=== PATIENT | male | born 1945 | race Caucasian/White ===

== ENCOUNTER 2023-11-07 02:45 | Emergency (ER) | payer MEDICARE, OTHER, SELFPAY ==
[2023-11-07] VITALS (7 sets, daily range): BP systolic 121–154; BP diastolic 63–83; BMI 32.7
[2023-11-07 03:34] LABS: % Basophils 0.5 % (0-2); % Eosinophils 1.1 % (0-6); % Immature Granulocytes 0.5 % (0-0.5); % Lymphocytes 8.6 % (20.5-51.1); % Monocytes 7.2 % (1.7-9.3); % Neutrophils 82.1 % (42.2-75.2); Absolute Eosinophils 0.1 10^3/uL (0-0.7); Absolute Lymphocytes 0.7 10^3/uL (1.2-3.4); Absolute Monocytes 0.6 10^3/uL (0.1-0.6); Absolute Neutrophils 6.5 10^3/uL (1.4-6.5); Hematocrit 32.1 % (39.0-52.0); Hemoglobin 11.4 g/dL (13.0-18.0); Mean Corp Hgb Conc. 35.5 g/dL (33.0-37.0); Mean Corpuscular Hgb 33.7 pg (27.0-31.0); Mean Platelet Volume 9.8 fL (7.4-10.4); Nucleated Red Blood Cells % 0 % (-); Platelet Count 191 10^3/uL (130-400); Red Blood Cell Count 3.38 10^6/uL (4.70-6.10); Red Cell Dist. Width 13.4 % (11.5-14.5); White Blood Cell Count 7.9 10^3/uL (4.8-10.8)
[2023-11-07 03:52] LABS: NT-proBNP 391 pg/ml; Troponin I < 0.012 ng/ml
[2023-11-07 03:57] LABS: ALT (SGPT) 23 U/L (0-50); AST (SGOT) 28 U/L (17-59); Albumin 3.7 g/dl (3.5-5.0); Alkaline Phosphatase 89 U/L (38-126); Blood Urea Nitrogen 32 mg/dl (9-20); Calcium 9.5 mg/dl (8.4-10.2); Carbon Dioxide 23 mmol/L (22-30); Chloride 103 mmol/L (98-107); Estimated Creatinine Clearance 75 ml/min; Glucose 135 mg/dl (70-99); Potassium 4.2 mmol/L (3.5-5.1); Sodium 138 mmol/L (135-145); Total Bilirubin 0.7 mg/dl (0.2-1.3); Total Protein 6.1 g/dl (6.3-8.2); eGFR > 60.00
--- NOTE | 2023-11-07 03:58 | ED.GENMED ---
History of Present Illness
<DO Lux Laboy Last Filed: 11/07/23 04:01>
General
Chief Complaint: Chest Pain
Source: patient
Time Seen by Provider: 11/07/23 03:48
Travel History
Have you had any contact with someone who has COVID-19?: No
Do you have any symptoms of coronavirus? Fever > 100 degrees, chills, cough, shortness of breath, sore throat, loss of taste or smell, muscle aches, or headache?: No
History of Present Illness
History of Present Illness:
78-year-old male presents to the emergency room complaining of chest pain. Patient states he was awoken from sleep by a sharp pain in the center of his chest. Pain was constant initially but now is somewhat better. It does get worse with a deep
breath. He does not feel short of breath. Patient does have a history of coronary artery disease and bypass surgery. He takes Plavix and aspirin. He has been compliant.
Past History
<Kelvin Baker DO - Last Filed: 11/07/23 04:01>
Past History
ED Past Medical History: CAD, Cancer (Prostate CA with radiation), HTN, Hypercholesterolemia and Other (Kidney stones)
ED Past Surgical History: Cardiac (CABG, stents X 2)
Social History
Tobacco: Non-smoker
Alcohol: Occasional
Drug: None
Personal:
Living: with family
Phy Exam
<DO Lux Laboy Last Filed: 11/07/23 04:01>
Physical Exam
Physical Exam:
General: Awake, Alert, Oriented X3. No acute distress.
Vitals: unremarkable
Head: Atraumatic
Eyes: Pupils equal, EOMI
Throat: Airway intact, no exudates
Neck: Trachea midline
Lungs: Clear and equal b/l
Heart: Regular rate, no murmurs
Abd: Soft, Nontender, No pulsatile mass
Neuro: Nonfocal
Skin: Warm, dry, no rash
Extremities: pulses equal b/l, no edema
<Wong Coy Martinez, DO - Last Filed: 11/07/23 15:10>
Heart Score for Chest Pain Patients
STEMI patient?: Not applicable
Course
<Kelvin SilvestreJinny Baker, DO - Last Filed: 11/07/23 04:01>
Orders/Labs/Results
Orders:
Orders
11/07/23 02:52
Electrocardiogram (*1) Urgent
Reason for Study: Other
Other Reason for Exam: Respiratory Distress
Cardiac Monitoring- Treatment ONCE
EKG- Treatment ONCE
IV Insert/Care/Rem.- Treatment PRN
CR Chest - 2 Views Urgent
Comment:
Reason For Exam: respiratory distress
O2 Therapy [RESP] Urgent
Titrate/Wean O2 to maintain O2 sat greater than (%): 93
Special Instructions: TO MAINTAIN CONTINUOUS O2 SATS >/= 93%
Pulse Ox/cont/shift [RESP] Urgent
Quantity: 1
Special Instructions: continuous pulse ox
11/07/23 03:11
Complete Blood Count/With Diff Urgent
Comprehensive Metabolic Panel Urgent
NT-proBNP Urgent
Troponin I Urgent
11/07/23 04:15
D-Dimer Urgent
11/07/23 05:24
CT Chest Pe Study Urgent
Comment:
Reason For Exam: chest pain
11/07/23 06:01
Troponin I Urgent
Abnormal Lab Results
11/07/23 11/07/23
03:11 04:15
RBC 3.38 L 10^6/uL
(4.70-6.10)
Hgb 11.4 L g/dL
(13.0-18.0)
Hct 32.1 L %
(39.0-52.0)
MCV 95.0 H fL
(80.0-94.0)
MCH 33.7 H pg
(27.0-31.0)
Absolute Lymphs (auto) 0.7 L 10^3/uL
(1.2-3.4)
Neutrophils % 82.1 H %
(42.2-75.2)
Lymphocytes % 8.6 L %
(20.5-51.1)
D-Dimer 0.84 H ug/mlFEU
(0.00-0.50)
BUN 32 H mg/dl
(9-20)
Glucose 135 H mg/dl
(70-99)
Total Protein 6.1 L g/dl
(6.3-8.2)
11/07/23 03:11
11/07/23 03:11
Vital Signs
Initial and Last Documented VS:
Initial Vital Signs
Temp Pulse Resp BP Pulse Ox
97.1 F 74 20 121/65 95
11/07/23 02:53 11/07/23 02:53 11/07/23 02:53 11/07/23 02:53 11/07/23 02:53
Last Documented Vital Signs
Temp Pulse Resp BP Pulse Ox
97.1 F 66 20 130/65 97
11/07/23 02:53 11/07/23 07:45 11/07/23 07:45 11/07/23 07:00 11/07/23 07:45
Remalt;Wong Martinez DO - Last Filed: 11/07/23 15:10>
Orders/Labs/Results
Orders:
Orders
11/07/23 02:52
Electrocardiogram (*1) Urgent
Reason for Study: Other
Other Reason for Exam: Respiratory Distress
Cardiac Monitoring- Treatment ONCE
EKG- Treatment ONCE
IV Insert/Care/Rem.- Treatment PRN
CR Chest - 2 Views Urgent
Comment:
Reason For Exam: respiratory distress
O2 Therapy [RESP] Urgent
Titrate/Wean O2 to maintain O2 sat greater than (%): 93
Special Instructions: TO MAINTAIN CONTINUOUS O2 SATS >/= 93%
Pulse Ox/cont/shift [RESP] Urgent
Quantity: 1
Special Instructions: continuous pulse ox
11/07/23 03:11
Complete Blood Count/With Diff Urgent
Comprehensive Metabolic Panel Urgent
NT-proBNP Urgent
Troponin I Urgent
11/07/23 04:15
D-Dimer Urgent
11/07/23 05:24
CT Chest Pe Study Urgent
Comment:
Reason For Exam: chest pain
11/07/23 06:01
Troponin I Urgent
Abnormal Lab Results
11/07/23 11/07/23
03:11 04:15
RBC 3.38 L 10^6/uL
(4.70-6.10)
Hgb 11.4 L g/dL
(13.0-18.0)
Hct 32.1 L %
(39.0-52.0)
MCV 95.0 H fL
(80.0-94.0)
MCH 33.7 H pg
(27.0-31.0)
Absolute Lymphs (auto) 0.7 L 10^3/uL
(1.2-3.4)
Neutrophils % 82.1 H %
(42.2-75.2)
Lymphocytes % 8.6 L %
(20.5-51.1)
D-Dimer 0.84 H ug/mlFEU
(0.00-0.50)
BUN 32 H mg/dl
(9-20)
Glucose 135 H mg/dl
(70-99)
Total Protein 6.1 L g/dl
(6.3-8.2)
11/07/23 03:11
11/07/23 03:11
Vital Signs
Initial and Last Documented VS:
Initial Vital Signs
Temp Pulse Resp BP Pulse Ox
97.1 F 74 20 121/65 95
11/07/23 02:53 11/07/23 02:53 11/07/23 02:53 11/07/23 02:53 11/07/23 02:53
Last Documented Vital Signs
Temp Pulse Resp BP Pulse Ox
97.1 F 66 20 130/65 97
11/07/23 02:53 11/07/23 07:45 11/07/23 07:45 11/07/23 07:00 11/07/23 07:45
<Kelvin Baker, DO - Last Filed: 11/07/23 04:01>
*EKG
Interpreted by ED Provider?: Yes
Interpretation: normal
Heart Rate: 72
Rate: normal
Rhythm: sinus and PVC's
[place]: normal axis
Ischemia: non-specific ST changes
*Program Director/Traffic Director Interpretation
Rate: normal
Interpretation: normal
Rhythm: sinus
<Wong Martinez DO - Last Filed: 11/07/23 15:10>
*Critical Care Note
Total Time (30-74mins, 75-104mins- exclusive of procedures): Not Applicable
<Wong Martinez DO - Last Filed: 11/07/23 15:10>
Update Note
Update Note:
I received signout from Dr. Baker at 7 AM. Age-adjusted D-dimer was elevated, however there is no evidence of PE on CTA. Notified patient of the nodules noted�he states he has had them 'since I was a kid'. He is not a smoker. 2 troponins have
been negative. He still has some pleuritic discomfort but appears comfortable at time of discharge.
ED Attending Note
<Kelvin Baker DO - Last Filed: 11/07/23 04:01>
-
Portions of this chart may have been created with voice recognition software.� Occasional wrong word or��sound alike� substitutions may have occurred due to the inherent limitations of voice recognition software.
Discharge Plan
Departure
Patient Disposition: Home (Routine Discharge)
Date of Disposition: 11/07/23
Time of Disposition: 07:40
Patient with high blood pressure during this ER visit?: Yes
Discharge Problem:
Chest pain
Instructions: Chest Pain CBC Follow Up
Prescriptions:
No Action
multivitamin [One Daily] 1 EACH tablet
1 ea PO DAILY
clopidogrel 75 MG tablet
75 mg PO DAILY
metoprolol tartrate 25 MG tablet
25 mg PO BID
ranolazine 500 MG tablet extended release 12 hr
1,000 mg PO BID
famotidine 20 MG tablet
20 mg PO QPM
nitroglycerin 0.4 MG tablet, sublingual
1 tab sublingual . DIRECTED
Patient Comments:
never used.
atorvastatin 80 MG tablet
80 mg PO DAILY
losartan 25 MG tablet
50 mg PO DAILY Qty: 0 0RF
Rx Instructions:
Hold if systolic blood pressure <130 while on Oxycodone.
aspirin 325 MG tablet
81 mg PO DAILY
Rx Instructions:
Take daily x4 weeks for blood clot prevention; then resume Aspirin 81 mg daily.
Osteo Bi-Flex
1 tab PO DAILY
Referrals:
Aldair Srivastava MD [Family Provider] -
Activity Restrictions/Additional Instructions:
2 cardiac blood tests show no sign of heart attack. However I strongly recommend he still follow with your wellness specialist. They should be contacting you for follow-up with if you do not hear from them by Thursday, I recommend that you call them. The
CAT scan of the chest shows no sign of blood clot however the radiologist noted 'indeterminate 1.3 cm nodule in the posterior left apex, 6 mm nodule in the right lower lobe, and radiologist recommended 3-month follow-up�discussed with your primary
care doctor.
Interventions
Interventions:
*Risk Screen - Suicide Last Done: 11/07/23 03:12
*General Assessment Last Done: 11/07/23 03:12
*Neglect/Abuse Screening Last Done: 11/07/23 07:54
ED- Fall Risk Assessment Last Done: 11/07/23 03:13
*ED COVID-19 Vaccine History Last Done: 11/07/23 03:11
*Nursing Disposition Last Done: 11/07/23 07:54
ED- Cardiac Assessment Last Done: 11/07/23 03:13
Discharge Date and Time
Discharge Date/Time: 11/07/23 07:54
[2023-11-07 04:39] LABS: D-Dimer 0.84 ug/mlFEU (0.00-0.50)
[2023-11-07 06:34] LABS: Troponin I < 0.012 ng/ml
== END 2023-11-07 07:54 | disposition home or self-care (01) ==
LOC: EMR 02:45
PROVIDERS: Emergency Medicine; EMERGENCY PHYSICIAN Emergency Medicine; FAMILY PHYSICIAN Internal Medicine
DX: R07.9 Chest pain, unspecified (principal); I25.10 Atherosclerotic heart disease of native coronary artery without angina pectoris; I10 Essential (primary) hypertension; E78.00 Pure hypercholesterolemia, unspecified; Z95.1 Presence of aortocoronary bypass graft; Z87.442 Personal history of urinary calculi; Z85.46 Personal history of malignant neoplasm of prostate; Z95.5 Presence of coronary angioplasty implant and graft; Z79.82 Long term (current) use of aspirin; Z79.02 Long term (current) use of antithrombotics/antiplatelets
CPT/HCPCS: 99285; 71046; 71275; 80053; 83880; 84484; 85025; 85379; 93005; Q9967

== ENCOUNTER → 2023-11-13 09:54 | Outpatient (REF) | payer MEDICARE, OTHER, SELFPAY ==
[2023-11-13 12:41] LABS: PSA, Total - Diagnostic 0.15 ng/ml (0.0-4.0)
== END ==
LOC: REG 09:54
PROVIDERS: ATTENDING PHYSICIAN Specialist; FAMILY PHYSICIAN Internal Medicine
DX: C61 Malignant neoplasm of prostate (principal)
CPT/HCPCS: 36415; 84153

== ENCOUNTER → 2023-11-18 11:10 | Outpatient (REF) | payer MEDICARE, OTHER, SELFPAY | LOC: DHCBC/DCA 11:10 | PROVIDERS: ATTENDING PHYSICIAN Nurse Practitioner | DX: R07.9 Chest pain, unspecified (principal) | CPT/HCPCS: 78452; 93017; A9500; J2785 ==

== ENCOUNTER → 2023-11-27 08:56 | Outpatient (REF) | payer MEDICARE, OTHER, SELFPAY | LOC: DHCBC HW 08:56 | PROVIDERS: ATTENDING PHYSICIAN Nurse Practitioner | DX: R07.9 Chest pain, unspecified (principal) | CPT/HCPCS: 93306 ==

== ENCOUNTER → 2023-12-09 10:01 | Outpatient (REF) | payer MEDICARE, OTHER, SELFPAY ==
[2023-12-09 10:48] LABS: Erythrocyte Sed Rate 10 mm/hour (0-20)
[2023-12-09 11:05] LABS: C-Reactive Protein < 5.00 mg/L (0.0-10.00)
[2023-12-10 13:32] LABS: Rheumatoid Agglutinin Less Than 10 IU (<10 IU)
[2023-12-11 15:05] LABS: ANA, IgG Reflex to HEp-2 None Detected (None Detected)
[2023-12-11 20:02] LABS: ds-DNA Ab, IgG Reflex To Titer 2 IU (0-24)
== END ==
LOC: REG 10:01
PROVIDERS: ATTENDING PHYSICIAN Internal Medicine Critical Care Medicine
DX: R07.81 Pleurodynia (principal)
CPT/HCPCS: 36415; 85652; 86038; 86140; 86225; 86430

== ENCOUNTER → 2024-01-28 09:20 | Outpatient (REF) | payer MEDICARE, OTHER, SELFPAY ==
[2024-01-28 10:27] LABS: % Basophils 0.8 % (0-2); % Eosinophils 2.4 % (0-6); % Immature Granulocytes 0.4 % (0-0.5); % Lymphocytes 14.9 % (20.5-51.1); % Monocytes 7.7 % (1.7-9.3); % Neutrophils 73.8 % (42.2-75.2); Absolute Eosinophils 0.1 10^3/uL (0-0.7); Absolute Lymphocytes 0.7 10^3/uL (1.2-3.4); Absolute Monocytes 0.4 10^3/uL (0.1-0.6); Absolute Neutrophils 3.7 10^3/uL (1.4-6.5); Hematocrit 35.9 % (39.0-52.0); Hemoglobin 12.2 g/dL (13.0-18.0); Mean Corpuscular Hgb 33.7 pg (27.0-31.0); Mean Corpuscular Volume 99.2 fL (80.0-94.0); Mean Platelet Volume 10.1 fL (7.4-10.4); Nucleated Red Blood Cells % 0 % (-); Platelet Count 169 10^3/uL (130-400); Red Blood Cell Count 3.62 10^6/uL (4.70-6.10); Red Cell Dist. Width 13.7 % (11.5-14.5)
[2024-01-28 11:33] LABS: TSH Reflex To Free T4 1.45 uIU/ml (0.47-4.68)
== END ==
LOC: REG 09:20
PROVIDERS: ATTENDING PHYSICIAN Internal Medicine Gastroenterology; FAMILY PHYSICIAN Internal Medicine
DX: K59.09 Other constipation (principal); D64.9 Anemia, unspecified
CPT/HCPCS: 36415; 84443; 85025

== ENCOUNTER → 2024-02-18 06:33 | Day surgery (SDC) | payer MEDICARE, OTHER, SELFPAY | LOC: GI 06:33 | PROVIDERS: ATTENDING PHYSICIAN Internal Medicine Gastroenterology | DX: Z12.11 Encounter for screening for malignant neoplasm of colon (principal); K57.30 Diverticulosis of large intestine without perforation or abscess without bleeding; K64.8 Other hemorrhoids; D12.2 Benign neoplasm of ascending colon; D12.3 Benign neoplasm of transverse colon; D12.5 Benign neoplasm of sigmoid colon; R13.10 Dysphagia, unspecified; Q39.9 Congenital malformation of esophagus, unspecified; K29.50 Unspecified chronic gastritis without bleeding; Z86.010 Personal history of colon polyps | CPT/HCPCS: 45385; 45380; 43239; 88305; 88342 ==

== ENCOUNTER 2024-03-03 10:45 | Outpatient (RCR) | payer MEDICARE, OTHER, SELFPAY | END 2024-03-03 23:59 | disposition home or self-care (01) | LOC: PURB 10:45 | PROVIDERS: ATTENDING PHYSICIAN Internal Medicine Critical Care Medicine; FAMILY PHYSICIAN Internal Medicine | DX: J98.4 Other disorders of lung (principal) | CPT/HCPCS: G0237; G0239 ==

== ENCOUNTER 2024-03-31 10:45 | Outpatient (RCR) | payer MEDICARE, OTHER, SELFPAY | END 2024-03-31 23:59 | disposition home or self-care (01) | LOC: PURB 10:45 | PROVIDERS: ATTENDING PHYSICIAN Internal Medicine Critical Care Medicine; FAMILY PHYSICIAN Internal Medicine | DX: J98.4 Other disorders of lung (principal) | CPT/HCPCS: G0239 ==

== ENCOUNTER → 2024-04-15 09:53 | Outpatient (REF) | payer MEDICARE, OTHER, SELFPAY ==
[2024-04-15 13:21] LABS: HDL Cholesterol 37 mg/dl; LDL Cholesterol, Calculated 91 mg/dl; Total Cholesterol 163 mg/dl (50-199); Triglyceride 179 mg/dl (10-149); Very Low Density Lipoprotein 35 mg/dl (0-30)
== END ==
LOC: REG 09:53
PROVIDERS: ATTENDING PHYSICIAN Internal Medicine Cardiovascular Disease; FAMILY PHYSICIAN Internal Medicine
DX: E78.2 Mixed hyperlipidemia (principal)
CPT/HCPCS: 36415; 80061

== ENCOUNTER 2024-04-28 10:45 | Outpatient (RCR) | payer MEDICARE, OTHER, SELFPAY | END 2024-04-29 09:50 | disposition home or self-care (01) | LOC: PURB 10:45 | PROVIDERS: ATTENDING PHYSICIAN Internal Medicine Critical Care Medicine; FAMILY PHYSICIAN Internal Medicine | DX: J98.4 Other disorders of lung (principal) | CPT/HCPCS: G0239 ==

== ENCOUNTER → 2024-05-06 10:12 | Outpatient (REF) | payer MEDICARE, OTHER, SELFPAY ==
[2024-05-06 11:07] LABS: % Basophils 0.8 % (0-2); % Eosinophils 2.8 % (0-6); % Immature Granulocytes 0.5 % (0-0.5); % Lymphocytes 13.8 % (20.5-51.1); % Monocytes 7.1 % (1.7-9.3); Absolute Basophils 0.1 10^3/uL (0-0.2); Absolute Eosinophils 0.2 10^3/uL (0-0.7); Absolute Lymphocytes 0.8 10^3/uL (1.2-3.4); Absolute Monocytes 0.4 10^3/uL (0.1-0.6); Absolute Neutrophils 4.6 10^3/uL (1.4-6.5); Hematocrit 35.8 % (39.0-52.0); Hemoglobin 12.3 g/dL (13.0-18.0); Mean Corp Hgb Conc. 34.4 g/dL (33.0-37.0); Mean Corpuscular Hgb 33.6 pg (27.0-31.0); Mean Corpuscular Volume 97.8 fL (80.0-94.0); Mean Platelet Volume 10.1 fL (7.4-10.4); Nucleated Red Blood Cells % 0 % (-); Platelet Count 182 10^3/uL (130-400); Red Blood Cell Count 3.66 10^6/uL (4.70-6.10); Red Cell Dist. Width 13.8 % (11.5-14.5); White Blood Cell Count 6.1 10^3/uL (4.8-10.8)
[2024-05-06 11:23] LABS: Blood Urea Nitrogen 37 mg/dl (9-20); Calcium 10.1 mg/dl (8.4-10.2); Carbon Dioxide 25 mmol/L (22-30); Chloride 108 mmol/L (98-107); Glucose 104 mg/dl (70-99); HDL Cholesterol 46 mg/dl; LDL Cholesterol, Calculated 116 mg/dl; Potassium 4.7 mmol/L (3.5-5.1); Sodium 140 mmol/L (135-145); Total Cholesterol 199 mg/dl (50-199); Triglyceride 187 mg/dl (10-149); Very Low Density Lipoprotein 37 mg/dl (0-30); eGFR > 60.00
[2024-05-06 11:26] LABS: NT-proBNP 429 pg/ml
[2024-05-06 11:52] LABS: PSA, Total - Diagnostic 0.19 ng/ml (0.0-4.0)
== END ==
LOC: REG 10:12
PROVIDERS: ATTENDING PHYSICIAN Nurse Practitioner; FAMILY PHYSICIAN Internal Medicine
DX: I25.118 Atherosclerotic heart disease of native coronary artery with other forms of angina pectoris (principal); I10 Essential (primary) hypertension; R07.89 Other chest pain; C61 Malignant neoplasm of prostate; E78.2 Mixed hyperlipidemia; K21.9 Gastro-esophageal reflux disease without esophagitis
CPT/HCPCS: 36415; 80048; 80061; 83880; 84153; 85025

== ENCOUNTER → 2024-06-08 07:57 | Outpatient (REF) | payer MEDICARE, OTHER, SELFPAY | LOC: PAVMRI 07:57 | PROVIDERS: ATTENDING PHYSICIAN Nurse Practitioner; FAMILY PHYSICIAN Internal Medicine | DX: I10 Essential (primary) hypertension (principal); R42 Dizziness and giddiness; R41.3 Other amnesia | CPT/HCPCS: 70553; A9575 ==

== ENCOUNTER → 2025-04-17 11:19 | Outpatient (REF) | payer MEDICARE, OTHER, SELFPAY ==
[2025-04-17 13:37] LABS: PSA, Total - Diagnostic 0.14 ng/ml (0.0-4.0)
== END ==
LOC: REG 11:19
PROVIDERS: ATTENDING PHYSICIAN Specialist; FAMILY PHYSICIAN Internal Medicine
DX: C61 Malignant neoplasm of prostate (principal)
CPT/HCPCS: 84153

== ENCOUNTER 2025-06-17 09:44 | Emergency (ER) | payer MEDICARE, OTHER, SELFPAY ==
[2025-06-17 09:48] VITALS: BP 142/74
[2025-06-17 10:10] LABS: Hematocrit 35.0 % (39.0-52.0); Hemoglobin 11.7 g/dL (13.0-18.0); Mean Corp Hgb Conc. 33.4 g/dL (33.0-37.0); Mean Corpuscular Volume 96.7 fL (80.0-94.0); Nucleated Red Blood Cells % 0 % (-); Platelet Count 144 10^3/uL (130-400); Red Cell Dist. Width 13.6 % (11.5-14.5)
[2025-06-17 10:23] LABS: ALT (SGPT) 23 U/L (0-50); AST (SGOT) 23 U/L (17-59); Albumin 4.5 g/dl (3.5-5.0); Alkaline Phosphatase 66 U/L (38-126); Blood Urea Nitrogen 35 mg/dl (9-20); Calcium 9.5 mg/dl (8.4-10.2); Carbon Dioxide 20 mmol/L (22-30); Chloride 110 mmol/L (98-107); Glucose 121 mg/dl (70-99); Lipase 576 U/L (23-300); Potassium 4.5 mmol/L (3.5-5.1); Sodium 140 mmol/L (135-145); Total Protein 6.9 g/dl (6.3-8.2); eGFR 56.23
--- NOTE | 2025-06-17 10:53 | EDRN ---
Jitendra FOSTER in room w/ pt at this time.
[2025-06-17 11:11] VITALS: BMI 32.0
[2025-06-17 13:10] VITALS: BP 149/66
--- NOTE | 2025-06-17 17:17 | ED.GENMED ---
History of Present Illness
General
Chief Complaint: Fall
Source: patient
Exam Limitations: none
Time Seen by Provider: 06/17/25 10:29
Nursing documentation reviewed up to this point in time: agreed with
History of Present Illness
History of Present Illness:
see MDM
Past History
Past History
ED Past Medical History: CAD, Cancer (Prostate CA with radiation), HTN, Hypercholesterolemia and Other (Kidney stones)
ED Past Surgical History: Cardiac (CABG, stents X 2)
Social History
Tobacco: Non-smoker
Alcohol: Occasional
Drug: None
Personal:
Living: with family
Phy Exam
Physical Exam
Physical Exam:
GENERAL: Alert , in no apparent distress
HEAD: NCAT
NECK: no midline tenderness, active ROM intact, no paraspinal muscle tenderness;
EYE: pupils equal and reactive, EOMs intact.
ENT: o/p clr, mmm. no hemotympanum
nose abrsaion, notnender bony nose, no facial tednerenss;
CARDIAC: Regular rate and rhythm, no edema
chest wall: L lower lateral ribs tender, no bruising
normla breath ssounds
LUNGS: Clear breath sounds bilaterally, no acute respiratory distress, no wheezes/rales/rhonchi
ABDOMEN: Soft, moderate LUQ tenderness, no r/g, no cvat
NEUROLOGICAL: Alert and oriented, no focal neuro deficits, CN intact, 5/5 strength, sensation intact
SKIN: Warm and dry, facial abrasions superficial
b/l knee abraisons
MUSCULOSKELETAL: No edema, well perfused.
PSYCH: Normal and appropriate interaction.
Course
Orders/Labs/Results
Orders:
Orders
06/17/25 09:52
CR Chest - 2 Views Urgent
Comment:
Reason For Exam: Trauma, shortness of breath
06/17/25 09:58
Complete Blood Count/With Diff Urgent
Comprehensive Metabolic Panel Urgent
Lipase Urgent
06/17/25 10:59
CT Chest/abd/pel W Iv Cont Urgent
Comment:
Reason For Exam: L rib/upper abd pain after fall, on plavix/asa
Abnormal Lab Results
06/17/25
09:58
RBC 3.62 L 10^6/uL
(4.70-6.10)
Hgb 11.7 L g/dL
(13.0-18.0)
Hct 35.0 L %
(39.0-52.0)
MCV 96.7 H fL
(80.0-94.0)
MCH 32.3 H pg
(27.0-31.0)
Absolute Lymphs (auto) 0.7 L 10^3/uL
(1.2-3.4)
Neutrophils % 77.6 H %
(42.2-75.2)
Lymphocytes % 12.7 L %
(20.5-51.1)
Chloride 110 H mmol/L
(98-107)
Carbon Dioxide 20 L mmol/L
(22-30)
BUN 35 H mg/dl
(9-20)
Glucose 121 H mg/dl
(70-99)
Lipase 576 H U/L
(23-300)
06/17/25 09:58
06/17/25 09:58
Vital Signs
Initial and Last Documented VS:
Initial Vital Signs
Temp Pulse Resp BP Pulse Ox
36.4 C 70 16 142/74 98
06/17/25 09:48 06/17/25 09:48 06/17/25 09:48 06/17/25 09:48 06/17/25 09:48
Last Documented Vital Signs
Temp Pulse Resp BP Pulse Ox
36.4 C 62 16 149/66 99
06/17/25 09:48 06/17/25 13:10 06/17/25 13:10 06/17/25 13:10 06/17/25 17:21
MDM/Problems Addressed
Differential Diagnosis Includes:
see MDM
MDM/Problems Addressed:
Note:
CHIEF COMPLAINT(S)
- Fall with facial and knee injury.
- Left-sided thoracic pain.
HISTORY OF PRESENT ILLNESS
The patient is a 80-year-old male who experienced a fall two days ago when he tripped over a concrete block in a dimly lit area, landing on his face and knees. he had some facial abrasions and b/l knee pain but then last night he started having L
sided rib and LUQ pain.
today he went to and was sent for eval.. He reports no loss of consciousness during the fall. Last night, he developed significant pain on the left side of his chest, exacerbated by breathing, which has been persistent. His left wrist is swollen
but not tender. No other upper extremity pain is noted. He denies any back pain, but pressure over certain areas of his abdomen and chest causes discomfort. He is concerned about possible injuries to his ribs or internal organs.
The patient reports taking Tylenol for pain but expresses interest in avoiding stronger medications if possible.
PAST MEDICAL AND SURGICAL HISTORY
The patient has a history of coronary artery bypass grafting (CABG).
CHRONIC MEDICAL CONDITIONS SIGNIFICANTLY AFFECTING CARE
- Cardiovascular disease requiring blood-thinning medication (Plavix).
- The patient denied having any conditions like diabetes or significant kidney problems.
MEDICATIONS
- Plavix (clopidogrel).
REVIEW OF SYSTEMS
- Respiratory: Severe left-sided chest pain, worsens with breathing.
- Musculoskeletal: Knee pain following fall, associated with facial trauma.
- Neurological: No loss of consciousness reported.
- Hematological: On clopidogrel for blood thinning.
PHYSICAL EXAM
- Face: Evidence of trauma from facial impact; no active bleeding from the nose or mouth.
- Upper Extremities: Swollen left wrist, but not tender.
- Respiratory: Pain on the left side of the chest with respirations.
- Abdomen: Discomfort noted upon examination of the upper left quadrant.
- Nursing notes reviewed and vital signs reviewed.
PLAN
- Obtain blood work to evaluate for any internal bleeding or other abnormalities.
- Arrange for a computed tomography (CT) scan of the chest and abdomen to assess for rib fractures, lung injury, or any bleeding in the spleen or other organs.
DIFFERENTIAL DIAGNOSIS
The Differential Diagnosis includes, in no particular order and is not limited to:
1. Rib fracture
2. Pneumothorax
3. Hemothorax
4. Sternal contusion
5. Pulmonary contusion
6. Splenic injury
7. Hematoma of the abdominal wall
8. Costochondritis
9. Kidney injury
10. Abdominal aortic injury
80 y/o M
mechanical fall with mostly facial and knee trauma 2 days ago
then developed L rib pain las tnight
went to and sent over for imaging
pt has tendernes to L lower ribs and LUQ
stable labs
fortunately neg trauma cts
hje had no head ache/facial bone tedneress, just abrasions, deferred facial imaging
pain meds
incentive spirometer
f/u with pcp
*Pulse Oximetry
SaO2: 99
Oxygen Mode of Delivery: Room air
Patient hypoxic: no (99)
*Critical Care Note
Total Time (30-74mins, 75-104mins- exclusive of procedures): Not Applicable
ED Attending Note
-
Portions of this chart may have been created with voice recognition software.� Occasional wrong word or��sound alike� substitutions may have occurred due to the inherent limitations of voice recognition software.
Discharge Plan
Departure
Patient Disposition: Home (Routine Discharge)
Date of Disposition: 06/17/25
Time of Disposition: 13:10
Patient with high blood pressure during this ER visit?: Yes
Condition: Fair
Covid-19: Not Applicable
Discharge Problem:
Fall, Contusion of rib, Contusion of knee
Instructions: Rib fracture or bruised rib - ED (DC)
Prescriptions:
No Action
multivitamin [One Daily] 1 EACH tablet
1 ea PO DAILY
clopidogrel 75 MG tablet
75 mg PO DAILY
metoprolol tartrate 25 MG tablet
25 mg PO BID
ranolazine 500 MG tablet extended release 12 hr
1,000 mg PO BID
famotidine 20 MG tablet
20 mg PO QPM
nitroglycerin 0.4 MG tablet, sublingual
1 tab sublingual . DIRECTED
Patient Comments:
never used.
atorvastatin 80 MG tablet
80 mg PO DAILY
losartan 25 MG tablet
50 mg PO DAILY Qty: 0 0RF
Rx Instructions:
Hold if systolic blood pressure <130 while on Oxycodone.
aspirin 325 MG tablet
81 mg PO DAILY
Rx Instructions:
Take daily x4 weeks for blood clot prevention; then resume Aspirin 81 mg daily.
Osteo Bi-Flex
1 tab PO DAILY
Referrals:
Aldair Srivastava MD [Family Provider, Internal Medicine]
Activity Restrictions/Additional Instructions:
Your CAT scan showed no signs of trauma to your chest abdomen or pelvis. You likely bruised your ribs. Use the incentive spirometer that you have at home to help you take deep breaths while you are awake. Do this every hour or 2.
Use Tylenol every 6 hours for pain.
Ice off-and-on to your knees. Return for any concerns
Interventions
Interventions:
*Risk Screen - Suicide Last Done: 06/17/25 11:11
*General Assessment Last Done: 06/17/25 11:11
*Neglect/Abuse Screening Last Done: 06/17/25 11:11
*ED- Fall Risk Assessment Last Done: 06/17/25 11:04
*ED COVID-19 Vaccine History Last Done: 06/17/25 11:11
*Nursing Disposition Last Done: 06/17/25 13:11
ED-Musculoskeletal Assessment Last Done: 06/17/25 11:11
ED- Neurological Assessment Last Done: 06/17/25 11:11
ED-Skin Assessment Last Done: 06/17/25 11:11
Discharge Date and Time
Discharge Date/Time: 06/17/25 13:18
Print Language: [place]
== END 2025-06-17 13:18 | disposition home or self-care (01) ==
LOC: EMR 09:44
PROVIDERS: Emergency Medicine; EMERGENCY PHYSICIAN Emergency Medicine; FAMILY PHYSICIAN Internal Medicine
DX: S20.219A Contusion of unspecified front wall of thorax, initial encounter (principal); S80.00XA Contusion of unspecified knee, initial encounter; W01.0XXA Fall on same level from slipping, tripping and stumbling without subsequent striking against object, initial encounter; I25.810 Atherosclerosis of coronary artery bypass graft(s) without angina pectoris; I10 Essential (primary) hypertension; E78.00 Pure hypercholesterolemia, unspecified; Z79.02 Long term (current) use of antithrombotics/antiplatelets; Z79.82 Long term (current) use of aspirin; Z95.1 Presence of aortocoronary bypass graft; Z95.5 Presence of coronary angioplasty implant and graft; Z85.46 Personal history of malignant neoplasm of prostate
CPT/HCPCS: 99284; 71046; 71260; 74177; 80053; 83690; 85025; Q9967

== ENCOUNTER → 2025-07-03 10:23 | Outpatient (REF) | payer MEDICARE, OTHER, SELFPAY ==
[2025-07-03 12:12] LABS: Albumin 4.4 g/dl (3.5-5.0); Blood Urea Nitrogen 23 mg/dl (9-20); Calcium 9.6 mg/dl (8.4-10.2); Carbon Dioxide 24 mmol/L (22-30); Chloride 108 mmol/L (98-107); Glucose 112 mg/dl (70-99); HDL Cholesterol 56 mg/dl; LDL Cholesterol, Calculated 57 mg/dl; Potassium 4.9 mmol/L (3.5-5.1); Sodium 141 mmol/L (135-145); Very Low Density Lipoprotein 26 mg/dl (0-30); eGFR > 60.00
== END ==
LOC: REG 10:23
PROVIDERS: ATTENDING PHYSICIAN Internal Medicine Cardiovascular Disease; FAMILY PHYSICIAN Internal Medicine
DX: E78.2 Mixed hyperlipidemia (principal); I25.10 Atherosclerotic heart disease of native coronary artery without angina pectoris; Z95.5 Presence of coronary angioplasty implant and graft; C61 Malignant neoplasm of prostate; I95.1 Orthostatic hypotension; R29.6 Repeated falls; D53.9 Nutritional anemia, unspecified; Z00.00 Encounter for general adult medical examination without abnormal findings
CPT/HCPCS: 36415; 80061; 80069

== ENCOUNTER → 2025-08-23 10:24 | Outpatient (REF) | payer MEDICARE, OTHER, SELFPAY ==
[2025-08-25 00:03] LABS: Free Lambda Light Chains,Quant 10.33 mg/L (5.71-26.30)
[2025-08-25 11:48] LABS: 24 Hour Urine Total Volume Random mL; Urine Collection Length Random hr
== END ==
LOC: REG 10:24
PROVIDERS: ATTENDING PHYSICIAN Internal Medicine
DX: R06.02 Shortness of breath (principal)
CPT/HCPCS: 36415; 83520; 83521; 84155; 84156; 84165; 86335